=== PATIENT | male | born 1990 | race American Indian/Alaskan Native ===

== ENCOUNTER 2020-10-10 11:13 | Emergency (ER) | payer SELFPAY ==
[2020-10-10 11:38] VITALS: BP 109/77
--- NOTE | 2020-10-10 11:40 | Emergency Department Report ---
Blank Doc - Documentation Documentation: 30-year-old male that presents with n/v and dizziness. Tachycardia in triage. 1- This is a initial triage assessment/medical screening only. Full assessment and work-up will be completed once the patient is in proper hospital gown, ED bed and in a private room setting. This initial assessment/diagnostic orders/clinical plan/ treatment(s) is/are subject to change based on pt's health status, clinical progression and re-assessment by fellow clinical providers in the ED. Further treatment and workup at subsequent clinical providers discretion. Patient/guardians urged not to elope from ED as their condition may be serious if not clinically assessed and managed. 2-labs 3-UA 4-orthostatic vitals
[2020-10-10 13:00] LABS: Alanine Aminotransferase 27 units/L (7-56); Albumin 4.9 g/dL (3.9-5); BUN/Creatinine Ratio 12; Blood Urea Nitrogen 13 mg/dL (9-20); Calcium 9.3 mg/dL (8.4-10.2); Hemolysis Index 19
[2020-10-10] MEDS ORDERED: SODIUM CHLORIDE 0.9% 1000 ML 1,000 ML IV ONE (13:10)
[2020-10-10] MEDS ORDERED: ONDANSETRON 4 MG/2 ML INJ IV ONE (13:10)
[2020-10-10 13:24] LABS: Basophils # (Auto) 0.1 K/mm3 (0.0-0.1); Basophils % (Auto) 0.7 % (0.0-1.8); Eosinophils % (Auto) 0.1 % (0.0-4.3); Hematocrit 44.7 % (35.5-45.6); Hemoglobin 15.3 gm/dl (11.8-15.2); Lymphocytes # (Auto) 1.1 K/mm3 (1.2-5.4); Lymphocytes % (Auto) 14.7 % (13.4-35.0); Mean Corpuscular HGB Conc 34 % (32-34); Mean Corpuscular Volume 91 fl (84-94); Monocytes # (Auto) 1.1 K/mm3 (0.0-0.8); Monocytes % (Auto) 14.6 % (0.0-7.3); Platelet Count 187 K/mm3 (140-440); Red Cell Distribution Width 12.5 % (13.2-15.2)
--- NOTE | 2020-10-10 13:28 | Emergency Department Report ---
ED General Adult HPI - General Chief complaint: Nausea/Vomiting/Diarrhea Stated complaint: WEAK/LIGHT HEADED/CAN'T EAT Time Seen by Provider: 10/10/20 11:35 Source: patient Mode of arrival: Ambulatory Limitations: No Limitations - History of Present Illness Initial comments: 30-year-old -[place] male presents to the emergency room complaining of lightheadedness feeling fatigued and weak for 2 days. Patient states that he had vomiting and nausea. Patient states he just vomited a little today. Patient reports he has no appetite denies any pain no fever no chills no nausea at this time. Patient reports a past medical history of anemia but never had a work-up. She denies any sick contact has not been Covid tested does not have his Covid vaccination. Patient states he occasionally drinks alcohol occasionally smokes marijuana and occasionally does smoke cigarettes. Patient reports he does not have a primary care provider. He reports his last HIV test was last year negative. Patient reports he is currently takes no medications an d has no known drug allergies. Onset/Timin -: days(s) Associated Symptoms: loss of appetite, nausea/vomiting (Resolved), weakness. denies: confusion, chest pain, cough, fever/chills Treatments Prior to Arrival: none - Related Data Previous Rx's Medication Instructions Recorded Last Taken Type Doxycycline Hyclate [Doxycycline 100 mg PO Q12HR 10 Days #20 tab 10/10/20 Unknown Rx Hyclate TAB] Allergies Allergy/AdvReac Type Severity Reaction Status Date / Time No Known Allergies Allergy Unverified 10/10/20 11:33 ED Review of Systems ROS: Stated complaint: WEAK/LIGHT HEADED/CAN'T EAT Other details as noted in HPI Comment: All other systems reviewed and negative ED Past Medical Hx - Past Medical History Previous Medical History?: Yes Additional medical history: anemia - Surgical History Past Surgical History?: No - Social History Smoking Status: Current Every Day Smoker Substance Use Type: Alcohol, Marijuana - Medications Home Medications: Home Medications Medication Instructions Recorded Confirmed Last Taken Type Doxycycline Hyclate [Doxycycline 100 mg PO Q12HR 10 Days #20 tab 10/10/20 Unknown Rx Hyclate TAB] ED Physical Exam - General Limitations: No Limitations General appearance: alert, cachectic - Head Head exam: Present: atraumatic, normocephalic - Eye Eye exam: Present: normal appearance - ENT ENT exam: Present: mucous membranes moist, normal external ear exam - Neck Neck exam: Present: normal inspection, full ROM - Respiratory Respiratory exam: Present: normal lung sounds bilaterally. Absent: respiratory distress, chest wall tenderness, accessory muscle use - Cardiovascular Cardiovascular Exam: Present: tachycardia - GI/Abdominal GI/Abdominal exam: Present: soft. Absent: distended, tenderness, guarding - Extremities Exam Extremities exam: Present: normal inspection, full ROM. Absent: tenderness - Back Exam Back exam: Present: normal inspection, full ROM. Absent: tenderness - Neurological Exam Neurological exam: Present: alert, oriented X3 - Psychiatric Psychiatric exam: Present: normal affect, normal mood - Skin Skin exam: Present: warm, dry, intact, normal color. Absent: rash ED Course Vital Signs 10/10/20 11:33 Temperature 98.8 F Pulse Rate 115 H Respiratory 20 Rate Blood Pressure 109/77 O2 Sat by Pulse 98 Oximetry ED Medical Decision Making - Lab Data Result diagrams: 10/10/20 11:45 10/10/20 11:45 Laboratory Tests 10/10/20 10/10/20 10/10/20 11:45 11:45 Unknown WBC 7.7 RBC 4.90 Hgb 15.3 H Hct 44.7 MCV 91 MCH 31 MCHC 34 RDW 12.5 L Plt Count 187 Lymph % (Auto) 14.7 Curry % (Auto) 14.6 H Eos % (Auto) 0.1 Baso % (Auto) 0.7 Lymph # (Auto) 1.1 L Curry # (Auto) 1.1 H Eos # (Auto) 0.0 Baso # (Auto) 0.1 Seg Neutrophils % 69.9 Seg Neutrophils # 5.4 Sodium 133 L Potassium 3.6 Chloride 95.5 L Carbon Dioxide 22 Anion Gap 19 BUN 13 Creatinine 1.1 Estimated GFR > 60 BUN/Creatinine Ratio 12 Glucose 80 Calcium 9.3 Total Bilirubin 1.10 AST 46 H ALT 27 Alkaline Phosphatase 98 Total Protein 8.3 H Albumin 4.9 Albumin/Globulin Ratio 1.4 Urine Color Yellow Urine Turbidity Cloudy Urine pH 5.0 Ur Specific Prue 1.027 Urine Protein 100 mg/dl Urine Glucose (UA) Neg Urine Ketones Tr Urine Blood Neg Urine Nitrite Neg Urine Bilirubin Neg Urine Urobilinogen 4.0 Ur Leukocyte Esterase Mod Urine WBC (Auto) > 182.0 H Urine RBC (Auto) 17.0 Urine Mucus 3+ Urine Sperm Few - Medical Decision Making 30-year-old -[place] male presents to the emergency room complaining of lightheadedness feeling fatigued and weak for 2 days. Patient states that he had vomiting and nausea. Patient states he just vomited a little today. Patient reports he has no appetite denies any pain no fever no chills no nausea at this time. Patient reports a past medical history of anemia but never had a work-up. She denies any sick contact has not been Covid tested does not have his Covid vaccination. Patient states he occasionally drinks alcohol occasionally smokes marijuana and occasionally does smoke cigarettes. Patient reports he does not have a primary care provider. He reports his last HIV test was last year negative. Patient reports he is currently takes no medications and has no known drug allergies. Basic labs have been ordered in triage. IV fluids Zofran has been ordered. Patient has UTI versus STD. Patient will be given a Rocephin 1 g IM and discharged home on doxycycline. Patient is instructed to follow-up at the [facility] for full STD evaluation. No gonorrhea chlamydia collected. Patient can take Tylenol or ibuprofen as needed for discomfort. He needs to increase his water intake advance his diet as tolerated. Refrain from intercourse for 2 weeks inform partners that he is to possible has an STD. Critical care attestation.: If time is entered above; I have spent that time in minutes in the direct care of this critically ill patient, excluding procedure time. ED Disposition Clinical Impression: Concern about STD in male without diagnosis, Fatigue, Dehydration Disposition: DC-01 TO HOME OR SELFCARE Is pt being admited?: No Does the pt Need Aspirin: No Condition: Stable Instructions: Dehydration, Adult, [id number]-[id number], Safe Sex, Gonorrhea Additional Instructions: Patient is instructed to follow-up at the health department for full STD evaluation. No gonorrhea chlamydia collected. Patient can take Tylenol or ibuprofen as needed for discomfort. He needs to increase his water intake advance his diet as tolerated. Refrain from intercourse for 2 weeks inform partners that they may have been exposed to STD. Prescriptions: Doxycycline Hyclate [Doxycycline Hyclate TAB] 100 mg PO Q12HR 10 Days #20 tab Referrals: PRIMARY CARE, [Primary Care Provider] - 3-5 Days [facility] [Outside] - 3-5 Days [facility] [Outside] - 3-5 Days Forms: Work/School Release Form(ED) Time of Disposition: 17:13
[2020-10-10 15:39] LABS: Bilirubin,Urine NEG (Negative); Blood,Urine NEG (Negative); Color,Urine Yellow (Yellow); Mucus,Urine 3+ /HPF; Sperm,Urine FEW /HPF (NP)
[2020-10-10 15:44] LABS: WBC,Urine > 182.0 /HPF (0.0-6.0)
[2020-10-10] MEDS ORDERED: LIDOCAINE-MPF (1%) 10 MG/1 ML VIAL 5 ML INFILTRATI ONE (16:43)
== END 2020-10-10 17:45 | disposition home or self-care (01) ==
LOC: ED 11:13
DX: E86.0 Dehydration (principal); R53.83 Other fatigue; Z20.2 Contact with and (suspected) exposure to infections with a predominantly sexual mode of transmission; F17.200 Nicotine dependence, unspecified, uncomplicated; F12.90 Cannabis use, unspecified, uncomplicated; Z72.89 Other problems related to lifestyle; Z86.69 Personal history of other diseases of the nervous system and sense organs; Z79.899 Other long term (current) drug therapy
CPT/HCPCS: 36415; 80053; 81001; 85025; 96361; 96372; 96374; 99282; J0696; J2405; J7030